=== PATIENT | male | born 1970 | race African-American/Black ===

== ENCOUNTER 2016-08-02 11:32 | Emergency (ER) | payer OTHER ==
[~2016-08-02] VITALS: Ht 172.7 cm; Wt 90.7 kg
[2016-08-02] MEDS ORDERED: NKM (11:48)
[2016-08-02 11:50] VITALS: BP 150/78
[2016-08-02] MEDS ORDERED: IBUPROFEN800 M1 PO (12:13)
[2016-08-02] MEDS ORDERED: ROBAXIN-750750 MG PO (12:13)
[2016-08-02 12:24] VITALS: BP 150/78
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
== END 2016-08-02 12:30 | disposition home or self-care (01) ==
LOC: EMR 12:25
DX: M54.5 Low back pain (principal)
CPT/HCPCS: 99284